=== PATIENT | female | born 1965 | race Caucasian/White ===

== ENCOUNTER 2019-03-09 18:51 | Emergency (ER) | payer OTHER, BC ==
[~2019-03-09] VITALS: Ht 162.6 cm; Wt 65.8 kg
[~2019-03-09 18:51] MED LIST: ACETAMINOPHEN-1 EAC1 PO; FISH OIL 1,001000 M2 PO; IBUPROFEN 800800 MG PO; SYNTHROID88 MCG PO; VICODIN 5-5001 EACH PO; VITAMIN B 12; WATER PILL PO
[2019-03-09] MEDS ORDERED: IBUPROFEN 800800 M1 PO (20:39)
[2019-03-09 20:54] VITALS: BP 117/78
== END 2019-03-09 20:55 | disposition home or self-care (01) ==
LOC: M.ERS 18:51
DX: S63.591A Other specified sprain of right wrist, initial encounter (principal); E03.9 Hypothyroidism, unspecified; Z88.5 Allergy status to narcotic agent; Z88.0 Allergy status to penicillin; Z88.1 Allergy status to other antibiotic agents; Z91.041 Radiographic dye allergy status; Z88.8 Allergy status to other drugs, medicaments and biological substances; Z91.030 Bee allergy status; Z91.013 Allergy to seafood; W18.39XA Other fall on same level, initial encounter; Y93.51 Activity, roller skating (inline) and skateboarding; Y92.89 Other specified places as the place of occurrence of the external cause; Y99.8 Other external cause status